=== PATIENT | female | born 2000 | race Caucasian/White ===

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

== ENCOUNTER 2020-06-25 12:22 | Emergency (ER) | payer OTHER, MEDICAID ==
[~2020-06-25] VITALS: Ht 152.4 cm; Wt 48.1 kg
[~2020-06-25 12:22] MED LIST changes: +KEFLEX500 M1 PO; +ZOLOFT25 MG PO
[2020-06-25 12:25] VITALS: BP 114/75
[2020-06-25] MEDS ORDERED: HYDROCODON-ACE1 EAC7 PO (12:51)
== END 2020-06-25 13:05 | disposition home or self-care (01) ==
LOC: M.ERS 12:22
DX: S60.221A Contusion of right hand, initial encounter (principal); W22.8XXA Striking against or struck by other objects, initial encounter; Y93.89 Activity, other specified; Y92.89 Other specified places as the place of occurrence of the external cause; Y99.8 Other external cause status

== ENCOUNTER 2020-11-30 11:18 | Emergency (ER) | payer OTHER, MEDICAID ==
[~2020-11-30] VITALS: Ht 157.5 cm; Wt 44.5 kg
[~2020-11-30 11:18] MED LIST changes: +HYDROCODON-ACE1 EAC7 PO
[2020-11-30 11:59] LABS: URINE BILIRUBIN NEGATIVE (Negative); URINE BLOOD NEGATIVE (Negative); URINE CLARITY CLEAR; URINE COLOR YELLOW; URINE GLUCOSE-RANDOM NEGATIVE (Negative); URINE KETONES NEGATIVE (Negative); URINE LEUKOCYTES-REFLEX NEGATIVE (Negative); URINE NITRITE-REFLEX NEGATIVE (Negative); URINE PROTEIN NEGATIVE (Negative); URINE SPECIFIC GRAVITY 1.015 (1.005-1.030); URINE UROBILINOGEN 0.2 E.U./dl (0.2-1.0)
[2020-11-30 12:52] LABS: ABSOLUTE BASOPHILS 0.1 thou/uL (0.0-0.2); ABSOLUTE EOSINOPHILS 0.1 thou/uL (0.0-0.7); ABSOLUTE LYMPHOCYTES 1.5 thou/uL (0.8-5.3); ABSOLUTE MONOCYTES 0.4 thou/uL (0.0-1.2); ABSOLUTE NEUTROPHILS 3.2 thou/uL (1.6-8.1); EOSINOPHILS 2.5 %; HEMATOCRIT 43.5 % (37.0-47.0); HEMOGLOBIN 14.7 gm/dL (12.0-15.0); MCH 28.5 pg (26.0-34.0); MCHC 33.7 g/dL (28.0-37.0); MCV 84.5 fL (80.0-100.0); MONOCYTES 8.1 %; MPV 9.3 fl. (7.2-11.1); NUCLEATED RBCS 0 /100WBC; PLATELET COUNT* 226 thou/uL (150-400); POLYS 60.4 %; RBC 5.15 mil/uL (4.20-5.00); RDW-CV 13.9 % (10.5-14.5); WBC 5.4 thou/uL (4.0-11.0)
[2020-11-30] MEDS ORDERED: NAPRELAN375 MG PO (15:16)
[2020-11-30] MEDS ORDERED: NAPROSYN500 MG PO (15:21)
[2020-11-30 15:27] VITALS: BP 93/53
== END 2020-11-30 15:28 | disposition home or self-care (01) ==
LOC: M.ERS 11:18
PROVIDERS: Family Medicine; Nurse Practitioner Family
DX: N93.9 Abnormal uterine and vaginal bleeding, unspecified (principal); R10.2 Pelvic and perineal pain